=== PATIENT | female | born 1980 | race American Indian/Alaskan Native ===

== ENCOUNTER 2017-01-29 13:27 | Emergency (ER) | payer OTHER, MEDICAID ==
[2017-01-29 13:42] VITALS: RESP 18; TEMP 98.6
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
[2017-01-29 15:14] VITALS: BP 113/75; PULSE 86; O2SAT 98
--- NOTE | 2017-01-29 15:47 | RAD ---
PROCEDURE: Cervical Spine Radiographs. HISTORY: Pain. COMPARISON: None. FINDINGS: BONES: Vertebral bodies maintained height. Normal alignment maintained. The atlantoaxial articulation and odontoid process are suboptimally evaluated due to technical limitation of this examination. . . DISC SPACES: Normal. SOFT TISSUES: Normal. No prevertebral soft tissue swelling. OTHER FINDINGS: None. IMPRESSION: No evidence of fracture or dislocation. Limited examination.
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
== END 2017-01-29 15:35 | disposition home or self-care (01) ==
LOC: ED 13:27
DX: S16.1XXA Strain of muscle, fascia and tendon at neck level, initial encounter (principal); S70.11XA Contusion of right thigh, initial encounter; V49.49XA Driver injured in collision with other motor vehicles in traffic accident, initial encounter; Y92.410 Unspecified street and highway as the place of occurrence of the external cause